=== PATIENT | female | born 1940 ===

== ENCOUNTER → 2017-09-19 | Outpatient (CLI) | payer OTHER ==
[2017-09-19 08:46] LABS: BASO % 0.2 %; BASO ABS # 0.02 K/uL (0-0.2); EOS % 3.1 %; EOS ABS # 0.32 K/uL (0-0.5); HEMATOCRIT 36.1 % (37-47); HEMOGLOBIN 11.7 g/dL (12.0-16.0); IG# 0.05 K/uL (0.00-0.02); LYMPH % 23.2 %; LYMPH ABS # 2.39 K/uL (1.2-3.4); MEAN CORPUSCULAR HEMOGLOBIN 28.5 pg (25-34); MEAN CORPUSCULAR HGB CONC 32.4 g/dl (32-36); MEAN PLATELET VOLUME 10.8 fL (7.4-10.4); MONO % 11.2 %; MONO ABS # 1.15 K/uL (0.11-0.59); NEUT % 61.8 %; NEUT ABS # 6.38 K/uL (1.4-6.5); PLATELET COUNT 368 K/uL (130-400); RED CELL DISTRIBUTION WIDTH CV 14.7 % (11.5-14.5); RED CELL DISTRIBUTION WIDTH SD 47.6 fL (36.4-46.3); WHITE BLOOD COUNT 10.31 K/uL (4.8-10.8)
[2017-09-19 08:56] LABS: ALBUMIN 2.6 gm/dl (3.4-5.0); ALKALINE PHOSPHATASE 83 U/L (45-117); ALT/SGPT 22 U/L (12-78); AST/SGOT 23 U/L (15-37); BLOOD UREA NITROGEN 10 mg/dl (7-18); CALCIUM 8.4 mg/dl (8.5-10.1); CARBON DIOXIDE 25 mmol/L (21-32); CHOLESTEROL 183 mg/dl (0-200); CREATININE 0.73 mg/dl (0.60-1.20); GLUCOSE 108 mg/dl (70-99); LDL CHOLESTEROL CALCULATED 129 mg/dl; POTASSIUM 3.5 mmol/L (3.5-5.1); SODIUM 139 mmol/L (136-145); TOTAL PROTEIN 6.6 gm/dl (6.4-8.2)
[2017-09-19 09:27] LABS: HEMOGLOBIN A1C 5.9 % (4.5-5.6)
== END ==
LOC: C.LABCC 07:54
PROVIDERS: ATTEND Internal Medicine
DX: E11.9 Type 2 diabetes mellitus without complications (principal); I25.10 Atherosclerotic heart disease of native coronary artery without angina pectoris

== ENCOUNTER → 2017-09-20 | Outpatient (CLI) | payer OTHER | LOC: C.LABCC 17:24 | PROVIDERS: ATTEND Internal Medicine | DX: N19 Unspecified kidney failure (principal) ==